=== PATIENT | male | born 1995 ===

== ENCOUNTER 2025-01-23 12:57 | Inpatient (IN) | payer BC ==
[~2025-01-23] VITALS: Ht 177.8 cm; Wt 73.1 kg
[2025-01-23 14:29] VITALS: BP 174/129
[2025-01-23 14:58] VITALS: BP 174/129
[2025-01-23] MEDS ORDERED: Acetaminophen 325 MG TABLET PO PRN (15:30)
[2025-01-23] MEDS ORDERED: Aluminum Hydroxide 320MG/5ML 473 ML PO PRN (15:30)
[2025-01-23] MEDS ORDERED: DiphenhydrAMINE HCl 50 MG/ML 1ML Vial IM PRN (15:30)
[2025-01-23] MEDS ORDERED: LORazepam 2 MG/ML 1ML Injection IM PRN ×3 (15:30→15:35)
[2025-01-23] MEDS ORDERED: Calcium Carbonate 500 MG Tab Chew PO PRN (15:35)
[2025-01-23] MEDS ORDERED: Melatonin 3 MG Tab PO PRN (15:35)
[2025-01-23] MEDS ORDERED: DiphenhydrAMINE HCl 50 MG Cap PO PRN (15:35)
[2025-01-23] MEDS ORDERED: LORazepam 2 MG Tab PO PRN (15:35)
[2025-01-23] MEDS ORDERED: Haloperidol Lactate Inj. 5 MG/ML Injection IM PRN (15:40)
[2025-01-23] MEDS ORDERED: Polyethylene Glycol 3350 17 gm PO PRN (15:40)
[2025-01-23] MEDS ORDERED: Haloperidol 5 MG Tab PO PRN (15:40)
[2025-01-23] MEDS ORDERED: LORazepam 1 MG Tab PO PRN (15:40)
[2025-01-23] MEDS ORDERED: Ibuprofen 600 MG Tab PO PRN (15:40)
[2025-01-23] MEDS ORDERED: Ondansetron 4 MG SoluTab MM PRN (15:40)
[2025-01-23] MEDS ORDERED: OLANZapine ODT 10 MG Tab MM PRN (15:40)
[2025-01-23] MEDS ORDERED: HydrOXYzine Pamoate 50 MG Cap PO PRN (15:40)
[2025-01-23] MEDS ORDERED: TraZODone HCl 50 MG Tab PO PRN (15:45)
--- NOTE | 2025-01-23 15:50 | NUR ---
ADMISSION NOTE: PT ARRIVED TO [facility] VIA SECURE TRANSPORT FROM [facility]. PER REPORT FROM SENDING HOSPITAL PT WAS BROUGHT IN AFTER HAVING A SUICIDE ATTEMPT BY DRINKING PEROXIDE AND TAKING MEDICATIONS. PT DENIES SI, HI AND AVH. STATES THAT HE BROKE UP WITH HIS GIRLFRIEND AND DRANK A LOT OF WHISKEY. STATES THAT HE DOESN'T REMEBER TRYING TO KILL HIMSELF OR WHAT HE TOOK. STATES THAT HE BLACKED OUT AFTER DRINKING. STATES THAT AFTER WAKING UP AT THE HOSPITAL HE IS NOT SUICIDAL. DENIES ANY SUICIDAL IDEATIONS OR PLANS TO HARM HIMSELF. PT CALM AND COOPERATIVE WITH ASSESSMENT. ORIENTED TO UNIT AND ROOM. PT SHOWERED AND THEN SPENT TIME IN THE DAY ROOM.
[2025-01-23 17:24] VITALS: BP 150/118
--- NOTE | 2025-01-23 17:48 | NUR ---
PT B/P NOTED TO BE ELEVATED. DR. RAE NOTIFIED AND NEW ORDERS GIVEN FOR ATIVAN. PT VERBALIZED DURING INTAKE THAT HE DOES NOT WANT TO TAKE MEDICATIONS. THIS RN SPOKE WITH PATIENT WHO STATES THAT HE DOESN'T THINK HE NEEDS IT. STATES, "IT WILL PROBABLY GO DOWN AFTER I EAT AND SLEEP". EDUCATED PT ON HTN AND ETOH WITHDRAW. PT DENIES ANY WITHDRAWAL SYMPTOMS. SEE CIWA SCORE. PROVIDED PT WITH EDUCATION SHEETS ON ATIVAN AND ETOH WITHDRAWALS. PT STATES THAT HE WILL LOOK THROUGH THEM AND LET ME KNOW IF HE IS WILLING TO TAKE THE MEDICATION.
[2025-01-23] MEDS ORDERED: LORazepam 1 MG Tab PO SCH (21:00)
[2025-01-23 21:04] VITALS: BP 175/133
--- NOTE | 2025-01-24 04:14 | NUR ---
SHIFT SUMMARY: PATIENT WAS UP IN THE DAY ROOM AT THE BEGINNING OF THE SHIFT, WATCHING TELEVISION WITH STAFF AND PEERS. HE WAS ABLE TO ANSWER ASSESSMENT QUESTIONS IN A REASONABLE AND LINEAR MANNER. HE DENIED SI, HI, A/V HALLUCINATIONS, AND THOUGHTS OF SELF HARMING. HE DID NOT WANT TO TAKE HIS MEDICATIONS AND A LOT OF MEDICATION EDUCATION WAS REQUIRED. HE WAS INFORMED THAT HE CAN ALWAYS TALK TO HIS DOCTOR IF HE WANTS HIS MEDICATIONS CHANGED OR DISCONTINUED. HE PARTICIPATED IN SNACK AT 2030. HE STAYED UP FOR A TIME, WATCHING TELEVISION, AND THEN WENT TO BED, WHERE HE WAS NOTED TO BE RESTING QUIETLY WITH EYES CLOSED AND RESPIRATIONS CONFIRMED FOR THE REMAINDER OF THE SHIFT. CONTINUING TO MONITOR FOR SAFETY WITH Q15 MINUTE CHECKS.
[2025-01-24 06:40] LABS: CHOL/HDL RATIO 3.9; Cholesterol 184 mg/dL (50-200); HDL Cholesterol 47 mg/dL (>39); LDL/HDL RATIO 2.4; Low Density Lipoprotein Chol 113 mg/dL (0-110); Triglycerides 118 mg/dL (30-140); Very Low Density Lipoprot Chol 23 mg/dL (6-28)
[2025-01-24 08:44] VITALS: BP 163/122
[2025-01-24] MEDS ORDERED: Multivitamins 1 Tab PO SCH ×2 (09:00)
[2025-01-24] MEDS ORDERED: Folic Acid 1 MG TAB PO SCH (09:00)
[2025-01-24] MEDS ORDERED: Thiamine HCl 100 MG Tab PO SCH (09:00)
--- NOTE | 2025-01-24 17:00 | NUR ---
SHIFT SUMMARY PT [email or web address]. PLEASANT AND COOPERATIVE WITH CARE, OTHER THAN HE HAS BEEN HESITANT TO TAKE MEDICATIONS, REITERATING THAT HE DOESN'T NEED THEM. PT DENIES SI/HI AND AVTH AND IS STILL REPORTING THAT HE IS NOT SUICIDAL AND DOES NOT REMEMBER BEING SUICIDAL WHILE HE WAS UNDER THE INFLUENCE OF ALCOHOL. PT HAD CIWA'S Q4 TODAY SCORIN, 1, THEN 0. AFTER MEETING WITH PSYCHIATRIST, HE DID AGREE TO TAKE HIS MEDICATIONS TO PREVENT ETOH WITHDRAWAL. PT HAS SINCE BEEN COMPLIANT WITH CARE INCLUDING ATTENDING [employer] AND MINGLING APPROPRIATELY WITH PEERS. POSSIBLE DC TOMORROW.
[2025-01-24] MEDS ORDERED: LORazepam 2 MG Tab PO ONE (17:10)
[2025-01-24 19:28] VITALS: BP 143/106
--- NOTE | 2025-01-25 04:24 | NUR ---
SHIFT SUMMARY PT PRESENT IN [place] AT START OF SHIFT. HE DENIES ANY SI, HI, THOUGHTS OF SELF HARM OR HALLUCINATIONS. HE REPORTED HIS MOOD "GOOD" AND IS LOOKING FORWARD TO BEING DISCHARGED. HE WAS PLEASANT AND COOPERATVIE. CIWA SCORE OF 0. HE HAD EVENING SNACK. MEDICATION TO ASSIST WITH SLEEPING WAS OFFERED, BUT PT DECLINED. PT WENT TO BED AT APPROXIMATELY 2130. Q15 MINUTE CHECKS TO CONTINUE PER PT SAFETY.
[2025-01-25 08:56] VITALS: BP 140/110
[2025-01-25] MEDS ORDERED: Naltrexone HCl50 MG PO (11:26)
--- NOTE | 2025-01-25 11:57 | NUR ---
DISCHARGE NOTE PT [id number]. PLEASANT AND COOPERATIVE WITH CARE. PT IS DISCHARGING TODAY TO HIS HOME. HE HAS DENIED SI/HI AND AVTH THIS AM AND REPORTED HIS MOOD "FINE, BETTER." HE IS EAGER TO DISCHARGE BUT WAS RECEPTIVE TO DISCUSSING DISCHARGE INSTRUCTIONS INCLUDING SAFE ALCOHOL CESSATION EDUCATION, DC MEDICATIONS AND FOLLOW UP APPOINTMENT INFORMATION. PT VERBALIZED UNDERSTANDING. HOLD RELEASE FORM SIGNED BY PSYCHIATRY. BELONGINGS WERE RETURNED AND PT WAS SAFELY ESCORTED OUT TO HIS FATHER FOR TRANSPORTATION HOME.
== END 2025-01-25 11:51 | disposition home or self-care (01) | DRG 897 ==
LOC: BHU 12:57
PROVIDERS: ADMIT Psychiatry & Neurology Psychiatry
DX: F10.20 Alcohol dependence, uncomplicated (principal); R45.851 Suicidal ideations; Y90.8 Blood alcohol level of 240 mg/100 ml or more; F32.A Depression, unspecified; Z60.2 Problems related to living alone; Z91.51 Personal history of suicidal behavior; Z63.0 Problems in relationship with spouse or partner
CPT/HCPCS: 36415; 80061; 83036; A9270